=== PATIENT | male | born 1980 ===

== ENCOUNTER 2017-11-11 05:49 | Emergency (ER) | payer OTHER ==
[2017-11-11 06:00] VITALS: TEMP 97.9
--- NOTE | 2017-11-11 06:31 | ED PDOC ---
HPI: Psych/Substance Abuse Time Seen by Provider: 11/11/17 05:58 Chief Complaint (Nursing): Alcohol Ingestion Chief Complaint (Provider): Alcohol Ingestion History Per: Patient History/Exam Limitations: no limitations Onset/Duration Of Symptoms: Hrs (char[employer] boat [employer]) Additional Complaint(s): Patient is a 37 y/o male with no past medical history who was brought in by EMS for intoxication. Patient admits to drinking more than 10 beverages but denies any drug use. Patient states he was stumbling in the street when he was picked up by EMS. Past Medical History Reviewed: Historical Data, Nursing Documentation, Vital Signs Vital Signs: Last Vital Signs Temp 97.9 F 11/11/17 05:57 Pulse 87 11/11/17 05:57 Resp 16 11/11/17 05:57 BP 126/77 11/11/17 05:57 Pulse Ox 96 11/11/17 05:57 - Medical History PMH: No Chronic Diseases - Surgical History Surgical History: No Surg Hx - Family History Family History: States: Unknown Family Hx - Social History Drugs: Denies - Allergies Allergies/Adverse Reactions: Allergies Allergy/AdvReac Type Severity Reaction Status Date / Time No Known Allergies Allergy Verified 11/11/17 05:57 Review of Systems ROS Statement: Except As Marked, All Systems Reviewed And Found Negative Constitutional: Negative for: Fever Neurological: Positive for: Altered Mental Status (intoxicated) Physical Exam - Reviewed Nursing Documentation Reviewed: Yes Vital Signs Reviewed: Yes - Physical Exam Appears: Positive for: Well (appearing intoxicated), Non-toxic, No Acute Distress Head Exam: Positive for: ATRAUMATIC, NORMOCEPHALIC Skin: Positive for: Normal Color, Warm, DRY Eye Exam: Positive for: EOMI, Normal appearance, PERRL Neck: Positive for: Normal, Painless ROM, Supple Cardiovascular/Chest: Positive for: Regular Rate, Rhythm. Negative for: Murmur Respiratory: Positive for: Normal Breath Sounds. Negative for: Respiratory Distress Gastrointestinal/Abdominal: Positive for: Normal Exam, Soft. Negative for: Tenderness Back: Positive for: Normal Inspection. Negative for: L CVA Tenderness, R CVA Tenderness Extremity: Positive for: Normal ROM. Negative for: Pedal Edema, Deformity Neurologic/Psych: Positive for: Alert. Negative for: Motor/Sensory Deficits - ECG O2 Sat by Pulse Oximetry: 96 (RA) Pulse Ox Interpretation: Normal Medical Decision Making Medical Decision Making: Time: 06:10 A/P: 37 y/o male brought in for alcohol intoxication. Patient is too intoxicated for safe discharge at this time. Will monitor until sober. Patient care will be endorsed to Dr. Phelan. --Alcohol serum ----- Scribe Attestation: Documented by Kendall Mckeon, acting as a scribe for Castro Sullivan MD. Provider Scribe Attestation: All medical record entries made by the Scribe were at my direction and personally dictated by me. I have reviewed the chart and agree that the record accurately reflects my personal performance of the history, physical exam, medical decision making, and the department course for this patient. I have also personally directed, reviewed, and agree with the discharge instructions and disposition. Disposition - Clinical Impression Clinical Impression: Alcohol abuse - Patient ED Disposition Is Patient to be Admitted: Transfer of Care - Disposition Disposition: Transfer of Care Disposition Time: 07:00 Condition: STABLE Forms: [employer] (Faroese) Patient Signed Over To: Vic Phelan Handoff Comments: pending sobriety
--- NOTE | 2017-11-11 07:19 | ED PDOC ---
- ECG O2 Sat by Pulse Oximetry: 96 (RA) Pulse Ox Interpretation: Normal - Progress ED Course And Treament: 1123: Stable. AAOx3. Pain free. Tolerated PO. FU with pcp. Clinical sobriety met. Ambulated with no issues. Medical Decision Making Medical Decision Makin:00 --care endorsed from Dr. Sullivan pending sobriety; no injury noted. Scribe Attestation: Documented by Brisa Sánchez, acting as a scribe for Vic Phelan MD Provider Scribe Attestation: All medical record entries made by the Scribe were at my direction and personally dictated by me. I have reviewed the chart and agree that the record accurately reflects my personal performance of the history, physical exam, medical decision making, and the department course for this patient. I have also personally directed, reviewed, and agree with the discharge instructions and disposition. Disposition - Clinical Impression Clinical Impression: Alcohol abuse - POA Present On Arrival: None - Disposition Referrals: [facility] [Outside] - 11/12/17 Disposition: Routine/Home Disposition Time: 11:24 Condition: STABLE Additional Instructions: Return if not better in 3 days. Instructions: Alcohol Abuse and Alcoholism (DC) Print Language: URDU
[2017-11-11 11:50] VITALS: BP 125/86; PULSE 90; RESP 20; O2SAT 97
== END 2017-11-11 11:49 | disposition home or self-care (01) ==
LOC: H.ER 05:49
DX: F10.10 Alcohol abuse, uncomplicated (principal); Y90.8 Blood alcohol level of 240 mg/100 ml or more